=== PATIENT | male | born 1980 | race African-American/Black ===

== ENCOUNTER 2017-01-27 03:18 | Emergency (ER) | payer SELFPAY ==
[~2017-01-27] VITALS: Ht 193 cm; Wt 84.0 kg
[~2017-01-27 03:18] MED LIST: CEPH500T; DIPH25CA83; PHEN100C4
[2017-01-27] MEDS ORDERED: CEFTRIAXONE SODIUM 250 MG/VIAL IM ONE (07:30)
[2017-01-27] MEDS ORDERED: AZITHROMYCIN 500 MG TABLET PO ONE (07:30)
[2017-01-27] MEDS ORDERED: IBUPROFEN 600MG TABLET PO ONE (07:30)
[2017-01-27 08:02] VITALS: BP 124/79
[2017-01-29 04:17] LABS: CHLAMYDIA TRACHOMATIS NAA Negative (Negative); NEISSERIA GONORRHOEAE NAA Negative (Negative)
== END 2017-01-27 09:25 | disposition home or self-care (01) ==
LOC: ER 03:18
DX: N48.1 Balanitis (principal); F12.10 Cannabis abuse, uncomplicated; F17.210 Nicotine dependence, cigarettes, uncomplicated
CPT/HCPCS: 36415; 86592; 86703; 86706; 87491; 87591; 96372; 99284; J0696; Z7610

== ENCOUNTER 2017-02-01 10:38 | Emergency (ER) | payer SELFPAY ==
[~2017-02-01] VITALS: Ht 180.3 cm; Wt 82.0 kg
[2017-02-01 10:41] VITALS: BP 140/78
[2017-02-01] MEDS ORDERED: CLOTRIMAZOLE 1% CREAM 30GM TOP STA (10:59)
[2017-02-01] MEDS ORDERED: HYDROCODONE/ACETAMINOPHEN 5/325MG TABLET PO ONE (11:15)
== END 2017-02-01 13:34 | disposition home or self-care (01) ==
LOC: ER 10:44
DX: B37.42 Candidal balanitis (principal); F20.9 Schizophrenia, unspecified
CPT/HCPCS: 99283

== ENCOUNTER 2017-09-01 10:08 | Emergency (ER) | payer OTHER ==
[~2017-09-01] VITALS: Ht 188 cm; Wt 85.0 kg
[2017-09-01 14:26] VITALS: BP 143/102
== END 2017-09-01 14:30 | disposition home or self-care (01) ==
LOC: ER 10:12
DX: S09.8XXA Other specified injuries of head, initial encounter (principal); G40.909 Epilepsy, unspecified, not intractable, without status epilepticus; F99 Mental disorder, not otherwise specified; Y04.0XXA Assault by unarmed brawl or fight, initial encounter; Y93.89 Activity, other specified; Y92.89 Other specified places as the place of occurrence of the external cause
CPT/HCPCS: 70450; 72125; 99284

== ENCOUNTER 2019-10-19 22:44 | Emergency (ER) | payer MEDICAID, OTHER ==
[~2019-10-19] VITALS: Ht 188 cm; Wt 87.0 kg
[2019-10-19 22:53] VITALS: BP 134/96
== END 2019-10-20 01:40 | disposition left against medical advice (07) ==
LOC: ER 22:44
DX: Z53.21 Procedure and treatment not carried out due to patient leaving prior to being seen by health care provider (principal)